=== PATIENT | male | born 1990 | race Caucasian/White ===

== ENCOUNTER → 2021-06-06 | Outpatient (CLI) | payer BC, OTHER ==
[~2021-06-06] MED LIST: AMOX-358 PO; HYDR-4226 PO
--- NOTE | 2021-06-06 09:39 | Diagnostic Imaging Report ---
INDICATION: Right knee pain. FINDINGS: 3 views. Nonweightbearing images show joint spaces to be well preserved. Articulating surfaces are smooth. Joint spaces are well-maintained. The patellofemoral joint appears normal. No fractures. No chondrocalcinosis or loose bodies. No hypertrophic bony changes. IMPRESSION: Normal right knee. Dictated by: Dictated on workstation # [id number]
== END ==
LOC: RAD 08:37
PROVIDERS: ATTEND Family Medicine
DX: M25.561 Pain in right knee (principal)
CPT/HCPCS: 73562

== ENCOUNTER → 2022-02-06 | Outpatient (CLI) | payer BC ==
[2022-02-06 08:25] LABS: BASOPHILS # (AUTO) 0.1 10^3/uL (0.0-0.1); BASOPHILS % (AUTO) 1 % (0-10); EOSINOPHILS # (AUTO) 0.2 10^3/uL (0.0-0.3); EOSINOPHILS % (AUTO) 2 % (0-10); HEMATOCRIT 45 % (40-54); HEMOGLOBIN 15.8 g/dL (13.3-17.7); LYMPHOCYTES # (AUTO) 2.1 10^3/uL (1.0-4.0); LYMPHOCYTES % (AUTO) 26 % (12-44); MEAN CORPUSCULAR HEMOGLOBIN 30 pg (25-34); MEAN CORPUSCULAR HGB CONC 35 g/dL (32-36); MEAN CORPUSCULAR VOLUME 87 fL (80-99); MEAN PLATELET VOLUME 10.1 fL (9.0-12.2); MONOCYTES # (AUTO) 0.6 10^3/uL (0.0-1.0); MONOCYTES % (AUTO) 7 % (0-12); NEUTROPHILS # (AUTO) 5.1 10^3/uL (1.8-7.8); NEUTROPHILS % (AUTO) 63 % (42-75); PLATELET COUNT 220 10^3/uL (130-400); WHITE BLOOD COUNT 8.1 10^3/uL (4.3-11.0)
[2022-02-06 08:55] LABS: ALBUMIN 4.2 GM/DL (3.2-4.5); BILIRUBIN,TOTAL 0.6 MG/DL (0.1-1.0); CALCIUM 9.6 MG/DL (8.5-10.1); CREATININE SERUM 0.84 MG/DL (0.60-1.30); POTASSIUM 4.2 MMOL/L (3.6-5.0)
== END ==
LOC: LAB 08:06
PROVIDERS: ATTEND Family Medicine
DX: Z00.01 Encounter for general adult medical examination with abnormal findings (principal)
CPT/HCPCS: 36415; 80053; 80061; 83036; 85025

== ENCOUNTER 2023-01-20 05:54 | Emergency (ER) | payer BC ==
[~2023-01-20] VITALS: Ht 193 cm; Wt 151.9 kg
[2023-01-20] MEDS ORDERED: KETOROLAC INJ 30 MG/ML VIAL IVP ONE (06:15)
[2023-01-20] MEDS ORDERED: NS IV 1000 ML 1,000 ML IV SCH (06:15)
--- NOTE | 2023-01-20 06:24 | ED Back Pain ---
General Chief Complaint: Back Problems Stated Complaint: BACK PAIN Source of Information: Patient (VEGA ROBLES DO) History of Present Illness Date Seen by Provider: Jan 20, 2023 Time Seen by Provider: 06:19 Initial Comments 32-year-old male presents with low back pain x2 weeks worsening over the past couple of days. States difficulty putting on pants. Denies any radiation around to the abdomen or down to the groin. No history of kidney stones. No numbness or tingling no saddle anesthesia no difficulty ambulating. States that feels like he pulled his back. States he had been doing yard work and noticed it after the first of 3 days that his back was sore. States he did not think much of it but over the past couple weeks has progressively worsened. He is tender over the right CVA but also vertebral processes of the lumbar spine. Timing/Duration: Getting Worse Severity: Moderate Pain/Injury Location: Back Method of Injury: Unknown Modifying Factors: Improves With Movement Associated Symptoms: denies symptoms (VEGA ROBLES DO) Allergies and Home Medications Allergies Coded Allergies: No Known Drug Allergies (Unverified , 06/14/15) Patient Home Medication List Home Medication List Reviewed: Yes (VEGA ROBLES DO) Amoxicillin/Potassium Clav (Augmentin 875-125 Tablet) 1 Each Tablet, 1 EACH PO BID Prescribed by: ELLI BURGOS on 09/14/15 1143 Cyclobenzaprine HCl (Cyclobenzaprine HCl) 10 Mg Tablet, 10 MG PO Q8H PRN for SPASMS Prescribed by: Vega Robles on 01/20/23850 Last Action: New Order Hydrocodone/Acetaminophen (Hydrocodone/Acetaminophen 5 MG/325 MG TAB) 1 Each Tablet, 1 EACH PO Q4H PRN for PAIN Prescribed by: ELLI BURGOS on 09/14/15 1143 Ibuprofen (Ibuprofen) 800 Mg Tablet, 800 MG PO Q8H PRN for PAIN Prescribed by: Vega Robles on 01/20/23850 Last Action: New Order Review of Systems Constitutional: no symptoms reported, see HPI EENTM: no symptoms reported Respiratory: no symptoms reported Cardiovascular: no symptoms reported Gastrointestinal: no symptoms reported Genitourinary: no symptoms reported Musculoskeletal: back pain Skin: no symptoms reported Psychiatric/Neurological: No Symptoms Reported (VEGA ROBLES DO) All Other Systems Reviewed Negative Unless Noted: Yes (VEGA ROBLES DO) Past Wyeodde-Exiowi-Vtapqz Hx Patient Social History Tobacco Use?: Yes Tobacco type used: Cigarettes Smoking Status: Current Everyday Smoker Use of E-Cig and/or Vaping dev: No Substance use?: No Alcohol Use?: Yes Alcohol type: Hard Liquor Alcohol Frequency: Couple times a week Pt feels they are or have been: No (VEGA ROBLES DO) Immunizations Up To Date Tetanus Booster (TDap): More than 5yrs Influenza Vaccine Up-to-Date: No; Not Current First/Initial COVID19 Vaccinat: 2020 Second COVID19 Vaccination Saul: 2020 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 oz. 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 Norm as Tested Skin: Normal Color, Warm/Dry (VEGA ROBLES DO) Progress/Results/Core Measures Results/Orders Lab Results Laboratory Tests Test 01/20/23 06:45 01/20/23 06:50 Range/Units White Blood Count 10.1 4.3-11.0 10^3/uL Red Blood Count 5.14 4.30-5.52 10^6/uL Hemoglobin 16.2 13.3-17.7 g/dL Hematocrit 46 40-54 % Mean Corpuscular Volume 89 80-99 fL Mean Corpuscular Hemoglobin 32 25-34 pg Mean Corpuscular Hemoglobin Concent 36 32-36 g/dL Red Cell Distribution Width 12.9 10.0-14.5 % Platelet Count 228 130-400 10^3/uL Mean Platelet Volume 10.1 9.0-12.2 fL Immature Granulocyte % (Auto) 1 % Neutrophils (%) (Auto) 69 42-75 % Lymphocytes (%) (Auto) 22 12-44 % Monocytes (%) (Auto) 6 0-12 % Eosinophils (%) (Auto) 2 0-10 % Basophils (%) (Auto) 1 0-10 % Neutrophils # (Auto) 7.0 1.8-7.8 10^3/uL Lymphocytes # (Auto) 2.2 1.0-4.0 10^3/uL Monocytes # (Auto) 0.6 0.0-1.0 10^3/uL Eosinophils # (Auto) 0.2 0.0-0.3 10^3/uL Basophils # (Auto) 0.1 0.0-0.1 10^3/uL Immature Granulocyte # (Auto) 0.1 0.0-0.1 10^3/uL Sodium Level 139 135-145 MMOL/L Potassium Level 4.2 3.6-5.0 MMOL/L Chloride Level 108 H 98-107 MMOL/L Carbon Dioxide Level 21 21-32 MMOL/L Anion Gap 10 5-14 MMOL/L Blood Urea Nitrogen 11 7-18 MG/DL Creatinine 0.87 0.60-1.30 MG/DL Estimat Glomerular Filtration Rate 118 BUN/Creatinine Ratio 13 Glucose Level 101 70-105 MG/DL Calcium Level 9.5 8.5-10.1 MG/DL Corrected Calcium 9.3 8.5-10.1 MG/DL Total Bilirubin 0.5 0.1-1.0 MG/DL Aspartate Amino Transf (AST/SGOT) 22 5-34 U/L Alanine Aminotransferase (ALT/SGPT) 35 0-55 U/L Alkaline Phosphatase 71 40-136 U/L Total Protein 7.0 6.4-8.2 GM/DL Albumin 4.3 3.2-4.5 GM/DL Urine Color YELLOW Urine Clarity CLEAR Urine pH 5.5 5-9 Urine Specific Dupree >=1.030 1.016-1.022 Urine Protein NEGATIVE NEGATIVE Urine Glucose (UA) TRACE H NEGATIVE Urine Ketones NEGATIVE NEGATIVE Urine Nitrite NEGATIVE NEGATIVE Urine Bilirubin NEGATIVE NEGATIVE Urine Urobilinogen 0.2 < = 1.0 MG/DL Urine Leukocyte Esterase NEGATIVE NEGATIVE Urine RBC (Auto) NEGATIVE NEGATIVE Urine RBC NONE /HPF Urine WBC NONE /HPF Urine Squamous Epithelial Cells RARE /HPF Urine Crystals NONE /LPF Urine Bacteria TRACE /HPF Urine Casts NONE /LPF Urine Mucus MODERATE H /LPF Urine Culture Indicated NO (JASON PITTMAN) Medications Given in ED Current Medications Medications Dose Ordered Sig/John Route Start Time Stop Time Status Last Admin Dose Admin Ketorolac Tromethamine 15 mg ONCE ONCE IVP 01/20/23 06:15 01/20/23 06:18 DC 01/20/23 06:48 15 MG (JASON PITTMAN) Vital Signs/I&O 01/20/23 06:02 Temp 36.8 Pulse 104 Resp 16 B/P (MAP) 134/100 (111) Pulse Ox 99 O2 Delivery Room Air (JASON PITTMAN) Progress Progress Note : Progress Note 32-year-old male reports worsening lumbar pain with radiation to the right CVA area x2 weeks. States is progressively worsened over the past couple of days. Denies significant injury states he noticed it after doing some yard work 2 weeks ago states it was 3 days worth of labor-intensive yard work after the first day he did have some mild soreness in his low back but did not think much of it and was able to proceed with following 2 days of yard work. No loss of bowel or bladder control no hematuria no pain radiating to his testicles he marcy es any history of kidney stone he has hydrated according to him appropriately. No nausea vomiting no fever cough chills no viral syndrome no diarrhea or constipation. Patient states that it feels like a knife in his back states he did have some difficulty even putting on his pants this morning. Advised we will evaluate a urinalysis to determine kidney stone versus UTI as well as basic lab work including CBC and CMP, patient agrees. Advised will more than likely obtain a CT however will await urine results to determine if it will be a renal CT versus lumbar spine to rule out any vertebral pathology. Patient agrees. He does have primary care advised he will need to follow-up with primary care for further evaluation. If negative for kidney stone and suspicious for disc herniation he will need an MRI but that will need to come from his primary care provider on an outpatient basis. Patient agrees. Will provide 1 L of IV fluids as well as Toradol to see if this alleviates patient's pain. (VEGA ROBLES DO) Progress Note : Time: 08:45 Progress Note 8:45 - Patients lab works and CT scan came back with no abnormalities that would require further work up. CT scan showed no bony abnormalities as well. Patient is explained his results and that the plan will be to discharge him with a short supply of muscle relaxers, 800 mg of Ibuprofen and counseled on the use of Ibuprofen as well as over the counter muscle relaxants and use of heating pads on the affected area. He was also counseled on following up with his primary care doctor today if possible but preferably sometime this week. He agreed to the plan as stated. (JASON PITTMAN) Departure Impression Primary Impression: Back pain Qualified Codes: M54.50 - Low back pain, unspecified Disposition: 01 HOME, SELF-CARE Condition: Stable Departure-Patient Inst. Referrals: DAWIT ROSALES MD (PCP/Family) Primary Care Physician Patient Instructions: Low Back Pain (DC) Scripts Ibuprofen (Ibuprofen) 800 Mg Tablet 800 MG PO Q8H PRN for PAIN, #30 TAB 0 Refills Prov: VEGA ROBLES DO 01/20/23 Cyclobenzaprine HCl (Cyclobenzaprine HCl) 10 Mg Tablet 10 MG PO Q8H PRN for SPASMS, #15 TAB 0 Refills Prov: VEGA ROBLES DO 01/20/23 VEGA ROBLES DO Jan 20, 2023 06:24 JASON PITTMAN Jan 20, 2023 08:53
[2023-01-20 06:56] LABS: BASOPHILS # (AUTO) 0.1 10^3/uL (0.0-0.1); BASOPHILS % (AUTO) 1 % (0-10); EOSINOPHILS # (AUTO) 0.2 10^3/uL (0.0-0.3); EOSINOPHILS % (AUTO) 2 % (0-10); HEMATOCRIT 46 % (40-54); HEMOGLOBIN 16.2 g/dL (13.3-17.7); LYMPHOCYTES # (AUTO) 2.2 10^3/uL (1.0-4.0); LYMPHOCYTES % (AUTO) 22 % (12-44); MEAN CORPUSCULAR HEMOGLOBIN 32 pg (25-34); MEAN CORPUSCULAR HGB CONC 36 g/dL (32-36); MEAN CORPUSCULAR VOLUME 89 fL (80-99); MEAN PLATELET VOLUME 10.1 fL (9.0-12.2); MONOCYTES # (AUTO) 0.6 10^3/uL (0.0-1.0); MONOCYTES % (AUTO) 6 % (0-12); NEUTROPHILS % (AUTO) 69 % (42-75); PLATELET COUNT 228 10^3/uL (130-400); WHITE BLOOD COUNT 10.1 10^3/uL (4.3-11.0)
[2023-01-20 07:07] LABS: ALBUMIN 4.3 GM/DL (3.2-4.5)
[2023-01-20 07:08] LABS: POTASSIUM 4.2 MMOL/L (3.6-5.0)
[2023-01-20 07:09] LABS: CALCIUM 9.5 MG/DL (8.5-10.1)
[2023-01-20 07:12] LABS: BILIRUBIN,TOTAL 0.5 MG/DL (0.1-1.0)
[2023-01-20 07:14] LABS: CREATININE SERUM 0.87 MG/DL (0.60-1.30)
[2023-01-20 07:22] LABS: CLARITY,URINE CLEAR; COLOR,URINE YELLOW; PH,URINE 5.5 (5-9)
[2023-01-20 07:23] LABS: BILIRUBIN,URINE NEGATIVE (NEGATIVE); GLUCOSE, URINE (UA) TRACE (NEGATIVE); KETONES,URINE NEGATIVE (NEGATIVE); LEUKOCYTE ESTERASE ,URINE NEGATIVE (NEGATIVE); NITRITE,URINE NEGATIVE (NEGATIVE); PROTEIN,URINE NEGATIVE (NEGATIVE)
[2023-01-20 07:24] LABS: BACTERIA,URINE TRACE /HPF; SQUAMOUS EPITHELIAL CELL,UR RARE /HPF
--- NOTE | 2023-01-20 08:06 | Diagnostic Imaging Report ---
CT LUMBAR SPINE WO Date: 01/20/2023 7:58 AM Indication: Back pain, Comparison: None. Technique: Helical CT images of the lumbar spine were obtained without contrast. Coronal and sagittal reformatted images were also performed. One or more of the following dose reduction techniques were utilized: Automated exposure control (AEC), Adjustment of mA and/or kV according to patient size, Use of iterative reconstruction technique such as ASiR, CT scan done according to ALARA and image gently/image wisely. Findings: The lumbar spine is normally aligned. No acute fracture. Vertebral body heights are maintained without compression deformity. The intervertebral disc spaces are normal. No aggressive lytic or blastic osseous lesion. No high grade spinal canal stenosis or neuroforaminal narrowing. No soft tissue abnormality within the visualized abdomen or pelvis. The visualized abdominal aorta is normal caliber. IMPRESSION: No acute osseous abnormality of the lumbar spine. Dictated by: Dictated on workstation # [id number]
[2023-01-20] MEDS ORDERED: CYCL10TA25 PO ×2 (08:51→08:59)
[2023-01-20] MEDS ORDERED: IBUP-1780 PO ×2 (08:51→08:59)
[2023-01-20 09:13] VITALS: BP 123/86
== END 2023-01-20 09:13 | disposition home or self-care (01) ==
LOC: EDUNIT# 05:54 → ER 05:56
DX: M54.50 Low back pain, unspecified (principal); F17.210 Nicotine dependence, cigarettes, uncomplicated
CPT/HCPCS: 36415; 72131; 80053; 81000; 85025